=== PATIENT | male | born 1975 | race Caucasian/White ===

== ENCOUNTER 2024-09-28 21:38 | Emergency (ER) | payer OTHER ==
[~2024-09-28] VITALS: Ht 182.9 cm; Wt 94.5 kg
[2024-09-28 22:13] VITALS: BP 108/58; PULSE 74; RESP 16; TEMP 98; O2SAT 94
[2024-09-29] MEDS: LIDOCAINE 1%/EPI 1:200,000/PF 10 ML VIAL SQ ONE (00:20)
== END 2024-09-29 04:00 | disposition home or self-care (01) ==
LOC: EMS 21:43
DX: S01.81XA Laceration without foreign body of other part of head, initial encounter (principal); Z98.890 Other specified postprocedural states; Z91.018 Allergy to other foods; W06.XXXA Fall from bed, initial encounter; Y93.89 Activity, other specified; Y92.89 Other specified places as the place of occurrence of the external cause; Y99.8 Other external cause status
CPT/HCPCS: 99283; 12011; J3490